=== PATIENT | male | born 1935 | race Caucasian/White ===

== ENCOUNTER → 2016-10-28 | Outpatient (CLI) | payer MEDICARE, OTHER ==
[~2016-10-28] MED LIST: AMOXICILLIN PO; ASPIRIN EC81 MG PO; DELTASONE5 MG PO; ENZALUTAMIDE PO; LIVALO2 MG PO; LUPRON DEPOT-22.5 MG IM; MIRALAX PO527 GM/BOT PO; STOOL SOFTENER100 MG PO; ULTRAM50 MG PO; VOLTAREN 1% GE100 GM TOP; XGEVA120 MG/1.7 SUB-Q; ZOLPIDEM TART12.5 MG PO
== END | disposition disaster alternative care site (69) ==
LOC: GRAD 09:37
DX: C61 Malignant neoplasm of prostate (principal); C79.51 Secondary malignant neoplasm of bone
CPT/HCPCS: A9503

== ENCOUNTER → 2017-04-21 | Outpatient (CLI) | payer MEDICARE, OTHER | END | disposition disaster alternative care site (69) | LOC: GRAD 12:24 | DX: M25.512 Pain in left shoulder (principal); M75.92 Shoulder lesion, unspecified, left shoulder; Z85.46 Personal history of malignant neoplasm of prostate ==

== ENCOUNTER → 2017-04-25 | Outpatient (CLI) | payer MEDICARE, OTHER | END | disposition disaster alternative care site (69) | LOC: GRAD 10:32 | DX: C61 Malignant neoplasm of prostate (principal); C79.51 Secondary malignant neoplasm of bone | CPT/HCPCS: A9503 ==